=== PATIENT | female | born 1970 | race Caucasian/White ===

== ENCOUNTER 2018-07-31 09:56 | Emergency (ER) | payer BC, OTHER ==
[~2018-07-31] VITALS: Ht 160 cm; Wt 92.8 kg
[2018-07-31 10:05] VITALS: Ht 160 cm; Wt 92.8 kg
[2018-07-31 12:01] VITALS: BP 130/70
== END 2018-07-31 12:01 | disposition home or self-care (01) ==
LOC: ED 09:56
DX: K04.7 Periapical abscess without sinus (principal); K08.89 Other specified disorders of teeth and supporting structures; I10 Essential (primary) hypertension; F17.210 Nicotine dependence, cigarettes, uncomplicated
CPT/HCPCS: J1885; J3490; J7060

== ENCOUNTER 2018-12-07 10:45 | Emergency (ER) | payer BC, OTHER ==
[~2018-12-07] VITALS: Ht 160 cm; Wt 80.3 kg
[2018-12-07 10:57] VITALS: Ht 160 cm; Wt 80.3 kg
[2018-12-07 11:39] LABS: BASOPHIL % 0.4 % (0-2); PLATELET COUNT 308 x10^3mcL (130-400); RED CELL DISTRIBUTION WIDTH 14.4 % (11.5-14.5)
[2018-12-07 11:54] LABS: ALBUMIN 3.8 g/dL (3.4-5.0); ALKALINE PHOSPHATASE 59 U/L (46-116); ALT/SGPT 20 U/L (14-59); AMYLASE 45 U/L (25-115); AST/SGOT 10 U/L (15-37); BILIRUBIN TOTAL 0.52 mg/dL (0.20-1.00); CALCIUM 9.6 mg/dL (8.5-10.1); CARBON DIOXIDE 25.4 mmol/L (21-32); CHLORIDE SERUM 108 mmol/L (98-107); CREATININE SERUM 0.8 mg/dL (0.6-1.0); GFR1 > 60 mL/min; GLUCOSE SERUM 111 mg/dL (74-106); LIPASE 170 IU/L (73-393); POTASSIUM SERUM 3.5 mmol/L (3.5-5.1); SODIUM SERUM 143 mmol/L (136-145); TOTAL PROTEIN, SERUM 7.3 g/dL (6.4-8.2)
[2018-12-07 13:13] VITALS: BP 122/89
== END 2018-12-07 13:13 | disposition home or self-care (01) ==
LOC: ED 10:45
PROVIDERS: Emergency Medicine
DX: K29.00 Acute gastritis without bleeding (principal); K21.9 Gastro-esophageal reflux disease without esophagitis; F32.9 Major depressive disorder, single episode, unspecified; I10 Essential (primary) hypertension; Z98.890 Other specified postprocedural states
CPT/HCPCS: J2405; J7030

== ENCOUNTER 2019-09-23 10:23 | Emergency (ER) | payer BC, OTHER ==
[~2019-09-23] VITALS: Ht 160 cm; Wt 60.8 kg
[2019-09-23 10:27] VITALS: Ht 160 cm; Wt 60.8 kg
[2019-09-23 12:09] VITALS: BP 144/54
== END 2019-09-23 12:09 | disposition home or self-care (01) ==
LOC: ED 10:23
DX: S93.601A Unspecified sprain of right foot, initial encounter (principal); I10 Essential (primary) hypertension; K21.9 Gastro-esophageal reflux disease without esophagitis; Z98.84 Bariatric surgery status; X50.1XXA Overexertion from prolonged static or awkward postures, initial encounter; Y93.89 Activity, other specified; Y92.89 Other specified places as the place of occurrence of the external cause; Y99.8 Other external cause status